=== PATIENT | female | born 1965 | race Caucasian/White ===

== ENCOUNTER 2019-05-23 15:48 | Emergency (ER) | payer OTHER, SELFPAY ==
[2019-05-23 15:53] VITALS: BP 142/91; PULSE 72; RESP 18; TEMP 37.2; O2SAT 98
[2019-05-23] MEDS: PROPARACAINE 0.5% OPHTH SOL 1 DROPS EYE-RIGHT (16:29)
[2019-05-23] MEDS: TET,DIPH,PERTUSS(ACELL),VAC/PF 0.5 ML SYRINGE IM (18:05)
[2019-05-23 18:20] VITALS: BP 156/97; PULSE 66; RESP 18; O2SAT 100
[2019-05-23 18:21] VITALS: BP 130/70; PULSE 80; RESP 18; O2SAT 98
--- NOTE | 2019-05-23 21:13 | ED.EYEPROB ---
HPI - Eye Problem <ROBI Elliott - Last Filed: 05/23/19 21:17> General Chief complaint: Eye Problems Stated complaint: splashed Wisner Jada in her eye Time Seen by Provider: 05/23/19 16:57 Source: patient Mode of arrival: ambulatory Limitations: no limitations History of Present Illness HPI Narrative: The patient is a 54-year-old female current smoker with history of dermatitis who presents with a chief complaint of exposure to Wisner Jada in her right eye. She states it was splashed in her eye at work. She states that it burned initially, so she called poison Control and flushed it. It did not improve so she came to the emergency department. She denies any visual deficit. She denies any blurry vision or healing of lytes. She does not know when her last tetanus was. She does not wear contact lenses. Related Data Home Medications Medication Instructions Recorded Confirmed cetirizine 10 mg PO DAILY #0 09/09/17 Previous Rx's Medication Instructions Recorded erythromycin 1 applictn EYE-RIGHT Q4H 10 Days 05/23/19 #3.5 gram Allergies Allergy/AdvReac Type Severity Reaction Status Date / Time cloxacillin [CLOXACILLIN] Allergy Intermediate Unverified 01/25/18 12:48 Review of Systems <ROBI Elliott - Last Filed: 05/23/19 21:17> Review of Systems GENERAL: Denies chills, fatigue, malaise, fever, sweats. HEENT: See HPI RESPIRATORY: Denies dyspnea, cough, wheezing, hemoptysis, sputum. CARDIOVASCULAR: Denies chest pain, palpitations, orthopnea, edema, GASTROINTESTINAL: Denies nausea, vomiting, abdominal pain, diarrhea, constipation, melena. : Denies dysuria, frequency, incontinence, hematuria, urinary retention. MUSCULOSKELETAL: denies weakness, joint pain, or bony pain SKIN: Denies rash, skin lesions, or other NEUROLOGIC: Denies weakness, headache, numbness, change in speech, confusion, seizures, incoordination. PSYCHIATRIC: No concerning psychosocial issues. 12 point review of systems is negative except for those stated above PFSH <[facility] - Last Filed: 05/23/19 21:17> Social History Smoking Status: Current every day smoker Social History Smoking Status: Current every day smoker Exam <DIANA Elliott - Last Filed: 05/23/19 21:17> Narrative Exam Narrative: GENERAL: This is a well-nourished, well-developed patient, no acute distress HEAD: Atraumatic. Normocephalic. No temporal or scalp tenderness. EYES: Pupils equal round and reactive. Extraocular motions intact. No scleral icterus. No injection or drainage. Right eye fluorescein exam shows small corneal abrasion on medial aspect of right eye. No obvious foreign body. PH is 7. ENT: Nose without bleeding, purulent drainage or septal hematoma. Throat without erythema, tonsillar hypertrophy or exudate. Uvula midline. Airway patent. NECK: Trachea midline. No JVD or lymphadenopathy. Supple, nontender, no meningeal signs. CARDIOVASCULAR: Regular rate and rhythm RESPIRATORY: Clear to auscultation. Breath sounds equal bilaterally. No wheezes, rales, or rhonchi. No cough. No increased respiratory effort. No accessory muscle use. GASTROINTESTINAL: Abdomen soft, non-tender, nondistended. No hepato-splenomegaly, or palpable masses. No guarding. EXTREMITIES: No clubbing, cyanosis, or edema. No joint tenderness, effusion, or edema noted. BACK: Nontender without deformity or crepitance. No flank tenderness. NEURO: AOx3. SKIN: No rash or erythema. Initial Vital Signs Initial Vital Signs: Vital Signs Temperature 99.0 F 05/23/19 15:53 Pulse Rate 72 05/23/19 15:53 Respiratory Rate 18 05/23/19 15:53 Blood Pressure 142/91 H 05/23/19 15:53 Pulse Oximetry 98 05/23/19 15:53 <Chula Shields DO - Last Filed: 05/24/19 08:40> Initial Vital Signs Initial Vital Signs: Vital Signs Temperature 99.0 F 05/23/19 15:53 Pulse Rate 72 05/23/19 15:53 Respiratory Rate 18 05/23/19 15:53 Blood Pressure 142/91 H 05/23/19 15:53 Pulse Oximetry 98 05/23/19 15:53 Course <DIANA Elliott - Last Filed: 05/23/19 21:17> Orders Ordered: Discontinued Medications Diphtheria/Tetanus/Acell Pertussis (Adacel) 0.5 ml IM .ONCE ONE Stop: 05/23/19 18:02 Last Admin: 05/23/19 18:05 Dose: 0.5 ml Proparacaine HCl (Parcaine 0.5% Ophth Jada) 1 drops EYE-RIGHT NOW ONE Stop: 05/23/19 15:56 Last Admin: 05/23/19 16:29 Dose: 1 drops Vital Signs - 8 hr 05/23/19 15:53 05/23/19 18:20 05/23/19 18:21 Temperature 99.0 F Pulse Rate 72 66 80 Respiratory Rate 18 18 18 Blood Pressure 142/91 H Blood Pressure [Left Arm] 156/97 H 130/70 Pulse Oximetry 98 100 98 <Chula Shields DO - Last Filed: 05/24/19 08:40> Orders Ordered: Discontinued Medications Diphtheria/Tetanus/Acell Pertussis (Adacel) 0.5 ml IM .ONCE ONE Stop: 05/23/19 18:02 Last Admin: 05/23/19 18:05 Dose: 0.5 ml Proparacaine HCl (Parcaine 0.5% Ophth Jada) 1 drops EYE-RIGHT NOW ONE Stop: 05/23/19 15:56 Last Admin: 05/23/19 16:29 Dose: 1 drops Vital Signs - 8 hr 05/23/19 15:53 05/23/19 18:20 05/23/19 18:21 Temperature 99.0 F Pulse Rate 72 66 80 Respiratory Rate 18 18 18 Blood Pressure 142/91 H Blood Pressure [Left Arm] 156/97 H 130/70 Pulse Oximetry 98 100 98 MDM - Eye Problem <TY Elliott-BC - Last Filed: 05/23/19 21:17> MDM Narrative Medical decision making narrative: The patient is a 54-year-old female who presents after a possible exposure to Wisner Jada in her eye. She was not sure if it was 409, possibly drain 0. However she was mostly commenced spines all. I did call poison Control and speak with [place] pharmacist regarding this, who suggested checking her pH and flushing if needed. Her pH was 7 on exam, she has a small corneal abrasion, so I did give her prescription of erythromycin. I did have her tetanus updated. Her visual acuity was within normal limits for her when she is wearing corrective vision. I did encourage her to follow up with an office clerk tomorrow. Discussed coming back to the ER for any acute concerns such as significantly decreased vision etc. No questions or concerns upon discharge. Discharge Plan Departure Patient Disposition: Home Clinical Impression: Chemical exposure of eye Corneal abrasion Qualifiers: Encounter type: initial encounter Laterality: right Qualified Code(s): S05.01XA - Injury of conjunctiva and corneal abrasion without foreign body, right eye, initial encounter Discharge Date/Time: 05/23/19 18:22 Interventions: ED Discharge Assessment Last Done: 05/23/19 18:21 Instructions: DI for Corneal Abrasion, DI for Chemical Eye Burn Activity Restrictions/Additional Instructions: We are treating you for a corneal abrasion. We have flushed your eye. I suggest that he follow up with Ophthalmology for a re-evaluation. I have given you the contact information. Please come back to the emergency department for any acute concerns such as decreased vision. Prescriptions: New erythromycin 5 mg/gram (0.5 %) ointment 1 applictn EYE-RIGHT Q4H 10 Days Qty: 3.5 RF: 0 No Action cetirizine 10 MG tablet 10 mg PO DAILY Qty: 0 RF: 0 Referrals: [facility] [Provider Group] Izabella King [Primary Care Provider] - <Chula Shields DO - Last Filed: 05/24/19 08:40> Cosign ED Attending Cosignature Attestation: I was immediately available in the department for consultation, plan for irrigation till ph of 7, no contacts, there is abrasion and started on antibiotics with plan for ophthalmology follow-up tomorrow. This documentation has been reviewed and I agree with assessment and plan. Supervised by [place] Shields DO
--- NOTE | 2019-05-23 21:17 | ED_ITS ---
HPI - Eye Problem <DIANA Elliott - Last Filed: 05/23/19 21:17> General Chief complaint: Eye Problems Stated complaint: splashed Pike Jada in her eye Time Seen by Provider: 05/23/19 16:57 Source: patient Mode of arrival: ambulatory Limitations: no limitations History of Present Illness HPI Narrative: The patient is a 54-year-old female current smoker with history of dermatitis who presents with a chief complaint of exposure to Pike Jada in her right eye. She states it was splashed in her eye at work. She states that it burned initially, so she called poison Control and flushed it. It did not improve so she came to the emergency department. She denies any visual deficit. She denies any blurry vision or healing of lytes. She does not know when her last tetanus was. She does not wear contact lenses. Related Data Home Medications Medication Instructions Recorded Confirmed cetirizine 10 mg PO DAILY #0 09/09/17 Previous Rx's Medication Instructions Recorded erythromycin 1 applictn EYE-RIGHT Q4H 10 Days 05/23/19 #3.5 gram Allergies Allergy/AdvReac Type Severity Reaction Status Date / Time cloxacillin [CLOXACILLIN] Allergy Intermediate Unverified 01/25/18 12:48 Review of Systems <ROBI Elliott - Last Filed: 05/23/19 21:17> Review of Systems GENERAL: Denies chills, fatigue, malaise, fever, sweats. HEENT: See HPI RESPIRATORY: Denies dyspnea, cough, wheezing, hemoptysis, sputum. CARDIOVASCULAR: Denies chest pain, palpitations, orthopnea, edema, GASTROINTESTINAL: Denies nausea, vomiting, abdominal pain, diarrhea, cons tipation, melena. : Denies dysuria, frequency, incontinence, hematuria, urinary retention. MUSCULOSKELETAL: denies weakness, joint pain, or bony pain SKIN: Denies rash, skin lesions, or other NEUROLOGIC: Denies weakness, headache, numbness, change in speech, confusion, seizures, incoordination. PSYCHIATRIC: No concerning psychosocial issues. 12 point review of systems is negative except for those stated above PFSH <ROBI Elliott - Last Filed: 05/23/19 21:17> Social History Smoking Status: Current every day smoker Social History Smoking Status: Current every day smoker Exam <DIANA Elliott - Last Filed: 05/23/19 21:17> Narrative Exam Narrative: GENERAL: This is a well-nourished, well-developed patient, no acute distress HEAD: Atraumatic. Normocephalic. No temporal or scalp tenderness. EYES: Pupils equal round and reactive. Extraocular motions intact. No scleral icterus. No injection or drainage. Right eye fluorescein exam shows small corneal abrasion on medial aspect of right eye. No obvious foreign body. PH is 7. ENT: Nose without bleeding, purulent drainage or septal hematoma. Throat without erythema, tonsillar hypertrophy or exudate. Uvula midline. Airway patent. NECK: Trachea midline. No JVD or lymphadenopathy. Supple, nontender, no meningeal signs. CARDIOVASCULAR: Regular rate and rhythm RESPIRATORY: Clear to auscultation. Breath sounds equal bilaterally. No wheezes, rales, or rhonchi. No cough. No increased respiratory effort. No accessory muscle use. GASTROINTESTINAL: Abdomen soft, non-tender, nondistended. No hepato- splenomegaly, or palpable masses. No guarding. EXTREMITIES: No clubbing, cyanosis, or edema. No joint tenderness, effusion, or edema noted. BACK: Nontender without deformity or crepitance. No flank tenderness. NEURO: AOx3. SKIN: No rash or erythema. Initial Vital Signs Initial Vital Signs: Vital Signs Temperature 99.0 F 05/23/19 15:53 Pulse Rate 72 05/23/19 15:53 Respiratory Rate 18 05/23/19 15:53 Blood Pressure 142/91 H 05/23/19 15:53 Pulse Oximetry 98 05/23/19 15:53 <Chula Shields DO - Last Filed: 05/24/19 08:40> Initial Vital Signs Initial Vital Signs: Vital Signs Temperature 99.0 F 05/23/19 15:53 Pulse Rate 72 05/23/19 15:53 Respiratory Rate 18 05/23/19 15:53 Blood Pressure 142/91 H 05/23/19 15:53 Pulse Oximetry 98 05/23/19 15:53 Course <DIANA Elliott - Last Filed: 05/23/19 21:17> Orders Ordered: Discontinued Medications Diphtheria/Tetanus/Acell Pertussis (Adacel) 0.5 ml IM .ONCE ONE Stop: 05/23/19 18:02 Last Admin: 05/23/19 18:05 Dose: 0.5 ml Proparacaine HCl (Parcaine 0.5% Ophth Jada) 1 drops EYE-RIGHT NOW ONE Stop: 05/23/19 15:56 Last Admin: 05/23/19 16:29 Dose: 1 drops Vital Signs - 8 hr 05/23/19 15:53 05/23/19 18:20 05/23/19 18:21 Temperature 99.0 F Pulse Rate 72 66 80 Respiratory Rate 18 18 18 Blood Pressure 142/91 H Blood Pressure [Left Arm] 156/97 H 130/70 Pulse Oximetry 98 100 98 <Chula Shields DO - Last Filed: 05/24/19 08:40> Orders Ordered: Discontinued Medications Diphtheria/Tetanus/Acell Pertussis (Adacel) 0.5 ml IM .ONCE ONE Stop: 05/23/19 18:02 Last Admin: 05/23/19 18:05 Dose: 0.5 ml Proparacaine HCl (Parcaine 0.5% Ophth Jada) 1 drops EYE-RIGHT NOW ONE Stop: 05/23/19 15:56 Last Admin: 05/23/19 16:29 Dose: 1 drops Vital Signs - 8 hr 05/23/19 15:53 05/23/19 18:20 05/23/19 18:21 Temperature 99.0 F Pulse Rate 72 66 80 Respiratory Rate 18 18 18 Blood Pressure 142/91 H Blood Pressure [Left Arm] 156/97 H 130/70 Pulse Oximetry 98 100 98 MDM - Eye Problem <TY Elliott-BC - Last Filed: 05/23/19 21:17> MDM Narrative Medical decision making narrative: The patient is a 54-year-old female who presents after a possible exposure to Pike Jada in her eye. She was not sure if it was 409, possibly drain 0. However she was mostly commenced spines all. I did call poison Control and speak with [place] pharmacist regarding this, who suggested checking her pH and flushing if needed. Her pH was 7 on exam, she has a small corneal abrasion, so I did give her prescription of erythromycin. I did have her tetanus updated. Her visual acuity was within normal limits for her when she is wearing corrective vision. I did encourage her to follow up with an geothermal operating engineer tomorrow. Discussed coming back to the ER for any acute concerns such as significantly decreased vision etc. No questions or concerns upon discharge. Discharge Plan Departure Patient Disposition: Home Clinical Impression: Chemical exposure of eye Corneal abrasion Qualifiers: Encounter type: initial encounter Laterality: right Qualified Code(s): S05.01XA - Injury of conjunctiva and corneal abrasion without foreign body, right eye, initial encounter Discharge Date/Time: 05/23/19 18:22 Interventions: ED Discharge Assessment Last Done: 05/23/19 18:21 Instructions: DI for Corneal Abrasion, DI for Chemical Eye Burn Activity Restrictions/Additional Instructions: We are treating you for a corneal abrasion. We have flushed your eye. I suggest that he follow up with Ophthalmology for a re-evaluation. I have given you the contact information. Please come back to the emergency department for any acute concerns such as decreased vision. Prescriptions: New erythromycin 5 mg/gram (0.5 %) ointment 1 applictn EYE-RIGHT Q4H 10 Days Qty: 3.5 RF: 0 No Action cetirizine 10 MG tablet 10 mg PO DAILY Qty: 0 RF: 0 Referrals: [facility] [Provider Group] Izabella King [Primary Care Provider] - <Chula Shields DO - Last Filed: 05/24/19 08:40> [facility]ign [facility]: I was immediately available in the department for consultation, plan for irrigation till ph of 7, no contacts, there is abrasion and started on antibiotics with plan for ophthalmology follow-up tomorrow. This documentation has been reviewed and I agree with assessment and plan. Supervised by Chula Shields DO
== END 2019-05-23 18:22 | disposition home or self-care (01) ==
PROVIDERS: Emergency Provider Nurse Practitioner Family; PCP Nurse Practitioner Family
DX: S05.01XA Injury of conjunctiva and corneal abrasion without foreign body, right eye, initial encounter (principal); Z77.098 Contact with and (suspected) exposure to other hazardous, chiefly nonmedicinal, chemicals; Y99.0 Civilian activity done for income or pay; Z23 Encounter for immunization
CPT/HCPCS: 90471; 99283; 99284; 90715

== ENCOUNTER → 2024-04-14 15:36 | Outpatient (CLI) | payer OTHER, SELFPAY | PROVIDERS: PCP Nurse Practitioner Family; Visit Provider Student in an Organized Health Care Education/Training Program | DX: R21 Rash and other nonspecific skin eruption (principal) | CPT/HCPCS: 87070; 87075; 87205 ==